=== PATIENT | female | born 1935 | race Caucasian/White ===

== ENCOUNTER → 2016-11-08 | Outpatient (CLI) | payer MEDICARE, OTHER ==
[~2016-11-08] MED LIST: /CIPR75TA OR; /LANS30GR OR; BISO10TA2 OR; CIPRO OR; GLUC850T OR; HYDR25TA6 OR; LISI20TA5 OR; METFPOW4 XX; POTA10CA2 OR; PRAV40TA OR; RANI300T OR
--- NOTE | 2016-11-14 07:48 | SLEEPHOME ---
DATE OF PROCEDURE: 11/08/2016 REFERRING PROVIDER: Elizabeth Underwood NP INTERPRETATION: Diagnostic home sleep testing was performed due to concern for the obstructive sleep apnea syndrome in this patient with a history of excessive somnolence and comorbidities of hypertension and ischemic heart disease. For testing, a NOX-T3 respiratory monitoring device was used. Continuous record was made of pulse, oxygen saturation, air flow, chest and abdominal strain, and body position. 9 hours and 59 minutes of data were reviewed. Of these, 5 hours and 55 minutes were indicated as time in bed. During the interval marked time in bed, there were 203 respiratory events identified of 10 seconds in duration or greater for a respiratory event index of 34.3. The events were primarily obstructive. The patient's baseline pulse rate was 61%. Pulse rate ranged 55 to 75. Baseline saturation 92%, lowest oxygen saturation 74%. Testing was performed in both the supine and nonsupine positions. IMPRESSION: Abnormal home sleep testing with repetitive respiratory events and oxygen desaturations to 74% is consistent with the obstructive sleep apnea syndrome. RECOMMENDATION: The patient should be encouraged to return to the sleep disorder center for formal in laboratory testing with pressure titration given the profound oxygen desaturations and comorbidities.
== END ==
LOC: M SLEEP HO 10:55
PROVIDERS: ATTEND Nurse Practitioner Adult Health
DX: G47.30 Sleep apnea, unspecified (principal)

== ENCOUNTER → 2016-12-17 | Outpatient (CLI) | payer MEDICARE, OTHER ==
[~2016-12-17] MED LIST changes: +ASPI1TAB PO; +BISO5TAB5 PO; +FISH100049 PO; +LISI20TA PO; +PRAV40TA2 PO; +SERT50TA PO; +VITA200016 PO
--- NOTE | 2016-12-17 12:33 | REP ---
Left foot four views: There is a nondisplaced fracture at the base of the fifth digit metatarsal. There is no dislocation. 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 Impression: Nondisplaced fracture at the base of the fifth digit metatarsal. Signed by David Parker MD 12/17/2016 12:24 P
== END ==
LOC: M ADAMS 12:02
PROVIDERS: ATTEND Physician Assistant
DX: M79.672 Pain in left foot (principal)

== ENCOUNTER → 2017-01-22 | Outpatient (CLI) | payer MEDICARE, OTHER ==
--- NOTE | 2017-01-25 10:23 | SLEEPCENT ---
DATE OF PROCEDURE: 01/22/2017 ORDERED BY: Elizabeth Underwood. Nocturnal polysomnography was performed for the titration of pressure therapy in this patient with obstructive sleep apnea syndrome based on clinical diagnosis confirmed by home testing revealing respiratory event index of 34.3. For testing, a [employer] Kira View full face mask of small size was used. 4 cm of water pressure applied to the circuit and the lights were extinguished. 7 hours and 8 minutes of data were reviewed. There were 360 minutes of sleep identified. Sleep latency was prolonged at 34 minutes. REM latency was also prolonged at 182 minutes. Sleep architecture did improve with optimal pressure therapy. There was one rapid eye movement (REM) period appreciated. There were some periods of wake. Overall sleep efficiency was 85.4%. Patient's EKG showed small complexes in a sinus rhythm of 58 beats per minute. EEG showed reasonably normal wave forms for sleep and wake. Respiratory events were best palliated with CPAP at a pressure of +7. Minimal snoring was noted early in the study. There was some persistence of limb activity with at least three trains of 30 events. Limb movement arousal index was mildly elevated at 8.8. IMPRESSION: 1. Obstructive sleep apnea syndrome (G47.33). 2. There is mild periodic limb movement disorder (G47.61). RECOMMENDATION: Nightly use of pressure therapy 7 cm of water should be sufficient to address the patient's respiratory issues. If sleep symptoms persist, interventions to reduce the frequency of arousal from limb activity may be helpful.
== END ==
LOC: M SLEEP 19:35
PROVIDERS: ATTEND Nurse Practitioner Adult Health
DX: G47.33 Obstructive sleep apnea (adult) (pediatric) (principal)

== ENCOUNTER 2018-07-07 10:55 | Emergency (ER) | payer MEDICARE, OTHER ==
[2018-07-07 12:17] LABS: KETONE, URINE AUTO RFX NEGATIVE (NEGATIVE); NITRITE, URINE AUTO RFX NEGATIVE (NEGATIVE); RBC, URINE AUTO RFX 1 /HPF (0-3); SPECIFIC GRAVITY UR AUTO RFX 1.013 (1.002-1.035); SQUAM EPITHELIAL CELL UR AURFX 2 /HPF (0-6); WBC, URINE AUTO RFX 3 /HPF (0-3)
[2018-07-07 12:18] LABS: LEUKOCYTE ESTERASE UR AUTO RFX 2+ (NEGATIVE)
== END 2018-07-07 12:55 | disposition home or self-care (01) ==
LOC: M ED 10:55
DX: N30.90 Cystitis, unspecified without hematuria (principal); L30.9 Dermatitis, unspecified; E11.9 Type 2 diabetes mellitus without complications; I10 Essential (primary) hypertension; J45.909 Unspecified asthma, uncomplicated; G47.33 Obstructive sleep apnea (adult) (pediatric); F41.9 Anxiety disorder, unspecified; Z79.899 Other long term (current) drug therapy; Z79.82 Long term (current) use of aspirin; Z88.0 Allergy status to penicillin; Z88.1 Allergy status to other antibiotic agents; Z88.8 Allergy status to other drugs, medicaments and biological substances; Z91.018 Allergy to other foods
CPT/HCPCS: 81001

== ENCOUNTER → 2018-09-02 | Outpatient (REF) | payer MEDICARE, OTHER ==
[2018-09-02 19:56] LABS: AMYLASE 33 U/L (25-115)
[2018-09-02 19:56] LABS: LIPASE 175 U/L (73-393)
[2018-09-02 20:16] LABS: CONTROL LINE HPYORI INT CTR LINE PRESENT; H PYLORI QUALITATIVE IgG DETECTED (NEGATIVE)
== END ==
LOC: M LAB REF 18:01
DX: R11.0 Nausea (principal)
CPT/HCPCS: 82150

== ENCOUNTER → 2021-09-06 | Outpatient (CLI) | payer MEDICARE, OTHER ==
[~2021-09-06] MED LIST changes: -ASPI1TAB PO; +ASPI81TA26 PO; +BISO5TAB14 PO; -BISO5TAB5 PO; +KENAAER3 TOP; -LISI20TA PO; +LISI20TA35 PO; +MACR100C43 PO; +NIZO2SHA TOP; +RANI1SYP PO; +SERT-141 PO; -SERT50TA PO
--- NOTE | 2021-09-06 16:56 | REP ---
INDICATION: MASS PAIN SWELLING COMPARISON: None. TECHNIQUE: Nye scale and color Doppler evaluation using linear high frequency transducer. FINDINGS: Ultrasound examination of the right lower extremity deep venous structures from the common femoral vein through the popliteal vein demonstrates normal compressibility, flow and wave patterns in response to respiration and augmentation. Evaluation of the calf veins demonstrates normal appearance to the posterior tibial and peroneal veins. There is no evidence for deep venous thrombosis. Contralateral CFV is patent and normal. IMPRESSION: No evidence for deep venous thrombosis. <Electronically signed by Jordan Beaver > 09/06/21 1739
== END ==
LOC: M RAD 15:32
PROVIDERS: ATTEND Physician Assistant Medical
DX: R22.41 Localized swelling, mass and lump, right lower limb (principal)

== ENCOUNTER 2021-12-17 13:28 | Emergency (ER) | payer MEDICARE, OTHER ==
[~2021-12-17] VITALS: Ht 165.1 cm; Wt 91.5 kg
[2021-12-17] MEDS ORDERED: NS 500 ML IV ONE (14:10)
[2021-12-17 14:43] LABS: BASO # 0.1 10^3/uL (0.0-0.2); BASO % 0.7 % (0.0-1.0); EOS # 0.2 10^3/uL (0.0-0.5); EOS % 1.9 % (0.0-3.0); HEMATOCRIT 34.3 % (36.0-47.0); HEMOGLOBIN 10.9 g/dl (12.0-15.5); LYMPH # 2.6 10^3/uL (1.5-5.0); LYMPH % 28.6 % (24.0-44.0); MEAN CORPUSCULAR HEMOGLOBIN 27.5 pg (27.0-33.0); MEAN CORPUSCULAR HGB CONC 31.8 g/dl (32.0-36.5); MEAN CORPUSCULAR VOLUME 86.4 fl (80.0-96.0); MONO # 0.8 10^3/uL (0.0-0.8); MONO % 8.5 % (2.0-8.0); NEUTROPHILS # 5.3 10^3/uL (1.5-8.5); PLATELET COUNT, AUTOMATED 343 10^3/uL (150-450); RED BLOOD COUNT 3.97 10^6/uL (4.00-5.40)
[2021-12-17 15:05] LABS: ALBUMIN 3.6 GM/DL (3.2-5.2); BILIRUBIN,DIRECT 0.3 MG/DL (0.0-0.2); BILIRUBIN,TOTAL 0.7 MG/DL (0.2-1.0); TOTAL PROTEIN 6.3 GM/DL (6.4-8.2)
[2021-12-17] MEDS ORDERED: ISOVUE-370 76% 100ML VIAL As Ordered ONE (15:07)
[2021-12-17] MEDS ORDERED: ONDA4TAB6 PO (17:21)
[2021-12-17 18:00] VITALS: BP 125/58
== END 2021-12-17 19:09 | disposition home or self-care (01) ==
LOC: M ED 13:28
DX: R14.0 Abdominal distension (gaseous) (principal); E11.9 Type 2 diabetes mellitus without complications; I10 Essential (primary) hypertension; E78.5 Hyperlipidemia, unspecified; F33.9 Major depressive disorder, recurrent, unspecified; K21.9 Gastro-esophageal reflux disease without esophagitis; Z79.899 Other long term (current) drug therapy; Z79.82 Long term (current) use of aspirin; Z88.0 Allergy status to penicillin; Z88.1 Allergy status to other antibiotic agents; Z88.2 Allergy status to sulfonamides; Z88.8 Allergy status to other drugs, medicaments and biological substances
CPT/HCPCS: 36415; 74177; 80047; 80076; 83690; 85025; 93041; 99285; Q9967

== ENCOUNTER 2022-01-20 21:19 | Inpatient (IN) | payer MEDICARE, OTHER ==
[~2022-01-20] VITALS: Ht 165.1 cm; Wt 89.7 kg
[~2022-01-20 21:19] MED LIST changes: +AMLO1TAB24 PO; +ATOR1TAB21 PO; +BACITAB PO; +CEPH500C PO; +D-3-50003 PO; +FLUO20CA22 PO; +FURO40TA2 PO; +ISOS1TAB35 PO; +METR-265 PO; +ONDA4TAB6 PO; +PANT40TA29 PO; +PRED20TA PO; +PRED5TA PO; +SUCR1TAB56 PO
[2022-01-20] MEDS ORDERED: ONDANSETRON 4MG/2ML VIAL IV ONE (22:20)
[2022-01-20 22:36] LABS: BASO % 0.2 % (0.0-1.0); EOS % 0.1 % (0.0-3.0); HEMATOCRIT 30.8 % (36.0-47.0); HEMOGLOBIN 10.1 g/dl (12.0-15.5); LYMPH # 1.4 10^3/uL (1.5-5.0); MEAN CORPUSCULAR HEMOGLOBIN 27.2 pg (27.0-33.0); MEAN CORPUSCULAR HGB CONC 32.8 g/dl (32.0-36.5); MONO # 1.1 10^3/uL (0.0-0.8); MONO % 8.9 % (2.0-8.0); NEUTROPHILS # 10.1 10^3/uL (1.5-8.5); NEUTROPHILS % 78.6 % (36.0-66.0); RED BLOOD COUNT 3.71 10^6/uL (4.00-5.40); WHITE BLOOD COUNT 12.9 10^3/uL (4.0-10.0)
[2022-01-20 22:51] LABS: PLATELET COUNT, AUTOMATED 443 10^3/uL (150-450)
[2022-01-20 23:45] LABS: ALBUMIN 3.4 GM/DL (3.2-5.2); BILIRUBIN,TOTAL 0.4 MG/DL (0.2-1.0); CALCIUM LEVEL 9.5 MG/DL (8.8-10.2); CREATININE FOR GFR 2.51 MG/DL (0.55-1.30); GLOMERULAR FILTRATION RATE 19.4 (>32); POTASSIUM SERUM 3.2 MEQ/L (3.5-5.1); TOTAL PROTEIN 6.3 GM/DL (6.4-8.2)
[2022-01-21] MEDS ORDERED: CEPHALEXIN 500 MG CAP PO ONE
[2022-01-21] MEDS ORDERED: metroNIDAZOLE (FLAGYL) 500MG TABLET PO ONE
[2022-01-21] MEDS ORDERED: ATORVASTATIN 20 MG TAB PO ONE
[2022-01-21] MEDS ORDERED: METOCLOPRAMIDE INJ 10MG/2ML VIAL (J2765 PER 1) IV ONE (00:10)
[2022-01-21] MEDS ORDERED: CEPH500C PO (01:41)
[2022-01-21] MEDS ORDERED: METR-265 PO (01:41)
[2022-01-21] MEDS ORDERED: BACITAB PO (01:41)
[2022-01-21] MEDS ORDERED: FURO40TA2 PO (01:41)
[2022-01-21] MEDS ORDERED: AMLO1TAB24 PO (01:41)
[2022-01-21] MEDS ORDERED: HOME MED LIST COMPLETE! XX SCH (01:45)
[2022-01-21] MEDS ORDERED: PROMETHAZINE 25MG/ML 1ML VIAL IV PRN (02:00)
[2022-01-21] MEDS ORDERED: GLUCOSE 4GM CHEW TABLET PO PRN (02:00)
[2022-01-21] MEDS ORDERED: DEXTROSE 50% 50 ML SYRINGE IV PRN (02:00)
[2022-01-21] MEDS ORDERED: metroNIDAZOLE 500 MG in IV 1 EA IV SCH (02:00)
[2022-01-21] MEDS ORDERED: KCL 20MEQ in NS 1000ML 1,000 ML IV SCH (02:00)
[2022-01-21] MEDS ORDERED: GLUCAGON INJ 1MG VIAL SC PRN (02:00)
[2022-01-21] MEDS ORDERED: ONDANSETRON 4MG/2ML VIAL IV PRN (02:00)
[2022-01-21 05:08] LABS: RSV AMPLIFICATION NEGATIVE (NEGATIVE)
[2022-01-21] MEDS: HEPARIN SOD (PORCINE) 5000UNITS/ML 1ML VIAL/SYRINGE SQ SCH ×3 (06:00→21:15)
[2022-01-21] MEDS: CEPHALEXIN 500 MG CAP PO SCH ×3 (06:00→21:15)
[2022-01-21 06:48] LABS: HEMATOCRIT 29.1 % (36.0-47.0); HEMOGLOBIN 9.4 g/dl (12.0-15.5); MEAN CORPUSCULAR HEMOGLOBIN 27.6 pg (27.0-33.0); MEAN CORPUSCULAR HGB CONC 32.3 g/dl (32.0-36.5); MEAN CORPUSCULAR VOLUME 85.6 fl (80.0-96.0); PLATELET COUNT, AUTOMATED 403 10^3/uL (150-450); WHITE BLOOD COUNT 13.2 10^3/uL (4.0-10.0)
[2022-01-21 07:15] LABS: CALCIUM LEVEL 9.2 MG/DL (8.8-10.2); CREATININE FOR GFR 2.36 MG/DL (0.55-1.30); GLOMERULAR FILTRATION RATE 20.8 (>32); MAGNESIUM LEVEL 1.9 MG/DL (1.8-2.4)
[2022-01-21 07:16] LABS: INR 1.22; PROTHROMBIN TIME 15.8 SECONDS (12.7-14.5)
[2022-01-21 07:17] LABS: PARTIAL THROMBOPLASTIN TIME 33.1 SECONDS (25.9-37.0)
[2022-01-21] MEDS: SUCRALFATE 1 GM TAB PO SCH ×4 (07:30→21:15)
[2022-01-21] MEDS ORDERED: METOCLOPRAMIDE INJ 10MG/2ML VIAL (J2765 PER 1) IV PRN (07:35)
[2022-01-21] MEDS: LACTOBACILLUS ACIDOPHILUS CAP (BACID) PO SCH ×3 (09:00→21:14)
[2022-01-21] MEDS ORDERED: FUROSEMIDE 40 MG TAB PO SCH (09:00)
[2022-01-21 09:20] VITALS: BP 154/65
[2022-01-21] MEDS: HumaLOG INSULIN (NovoLOG) PER UNIT SC SCH ×4 (09:59→21:00)
[2022-01-21] MEDS: KCL 10MEQ/100ML SWI (KRUN) 10 MEQ in IV 1 EA IV SCH ×2 (10:00→11:36)
[2022-01-21] MEDS: PANTOPRAZOLE 40MG VIAL IV SCH ×2 (10:06→21:15)
[2022-01-21] MEDS: metroNIDAZOLE 500 MG in IV 1 EA IV SCH ×2 (10:07→17:15)
[2022-01-21] MEDS: amLODIPine 5 MG TAB PO SCH (13:46)
[2022-01-21] MEDS: ASPIRIN 81MG ENTERIC TABLET PO SCH (13:47)
[2022-01-21] MEDS: FLUoxetine 20MG CAP PO SCH (13:47)
[2022-01-21] MEDS: ISOSORBIDE MON. (IMDUR) 30 MG XR TAB PO SCH (13:47)
[2022-01-21] MEDS: predniSONE 5 MG TAB PO SCH ×2 (13:47→21:15)
[2022-01-21] MEDS: POTASSIUM CHLORIDE 10MEQ SR TABLET PO SCH ×2 (13:48→17:14)
[2022-01-21] MEDS: BISOPROLOL FUM 2.5 MG PER 1/2TAB PO SCH (13:50)
[2022-01-21 14:00] VITALS: BP 152/66
[2022-01-21] MEDS ORDERED: KCL 10MEQ/100ML SWI (KRUN) 10 MEQ in IV 1 EA IV ONE (14:00)
[2022-01-21] MEDS: FUROSEMIDE 40MG/4ML VIAL (J1940) IV SCH (17:15)
[2022-01-21] MEDS ORDERED: POTASSIUM CHLORIDE 10MEQ SR TABLET PO SCH (18:00)
[2022-01-21] MEDS: ATORVASTATIN 20 MG TAB PO SCH (21:15)
[2022-01-21 22:00] VITALS: BP 146/65
[2022-01-22] MEDS: metroNIDAZOLE 500 MG in IV 1 EA IV SCH ×3 (00:32→17:02)
[2022-01-22] MEDS: HEPARIN SOD (PORCINE) 5000UNITS/ML 1ML VIAL/SYRINGE SQ SCH ×3 (06:00→20:53)
[2022-01-22] MEDS: CEPHALEXIN 500 MG CAP PO SCH ×2 (06:00→14:04)
[2022-01-22] MEDS: SUCRALFATE 1 GM TAB PO SCH ×4 (06:51→20:50)
[2022-01-22 06:53] LABS: HEMATOCRIT 27.5 % (36.0-47.0); HEMOGLOBIN 8.8 g/dl (12.0-15.5); MEAN CORPUSCULAR HEMOGLOBIN 27.5 pg (27.0-33.0); MEAN CORPUSCULAR VOLUME 85.9 fl (80.0-96.0); PLATELET COUNT, AUTOMATED 352 10^3/uL (150-450); WHITE BLOOD COUNT 6.4 10^3/uL (4.0-10.0)
[2022-01-22 07:17] LABS: CALCIUM LEVEL 9.1 MG/DL (8.8-10.2); CREATININE FOR GFR 2.13 MG/DL (0.55-1.30); GLOMERULAR FILTRATION RATE 23.4 (>32); MAGNESIUM LEVEL 1.7 MG/DL (1.8-2.4)
[2022-01-22] MEDS: PANTOPRAZOLE 40MG VIAL IV SCH (08:13)
[2022-01-22] MEDS: FUROSEMIDE 40MG/4ML VIAL (J1940) IV SCH ×2 (08:14→17:02)
[2022-01-22] MEDS: ISOSORBIDE MON. (IMDUR) 30 MG XR TAB PO SCH (08:14)
[2022-01-22] MEDS: predniSONE 5 MG TAB PO SCH ×2 (08:14→20:50)
[2022-01-22] MEDS: FLUoxetine 20MG CAP PO SCH (08:14)
[2022-01-22] MEDS: amLODIPine 5 MG TAB PO SCH (08:14)
[2022-01-22] MEDS: ASPIRIN 81MG ENTERIC TABLET PO SCH (08:14)
[2022-01-22] MEDS: LACTOBACILLUS ACIDOPHILUS CAP (BACID) PO SCH ×3 (08:14→20:50)
[2022-01-22] MEDS: HumaLOG INSULIN (NovoLOG) PER UNIT SC SCH ×4 (08:15→21:00)
[2022-01-22 14:00] VITALS: BP 153/69
[2022-01-22 18:55] VITALS: BP 138/70
[2022-01-22] MEDS: ACETAMINOPHEN TAB 650MG DOSE (2X325MG) PO PRN (20:50)
[2022-01-22] MEDS: ATORVASTATIN 20 MG TAB PO SCH (20:50)
[2022-01-22] MEDS: PANTOPRAZOLE 40MG TAB (PROTONIX) PO SCH (20:54)
[2022-01-22 22:00] VITALS: BP 123/50
[2022-01-23] MEDS ORDERED: CALCIUM CARBONATE 500 MG CHEW U/D PO PRN (01:05)
[2022-01-23] MEDS: HEPARIN SOD (PORCINE) 5000UNITS/ML 1ML VIAL/SYRINGE SQ SCH ×2 (05:07→13:33)
[2022-01-23 06:00] VITALS: BP 139/59
[2022-01-23 07:30] VITALS: BP 140/62
[2022-01-23 07:33] LABS: HEMATOCRIT 25.4 % (36.0-47.0); HEMOGLOBIN 8.2 g/dl (12.0-15.5); MEAN CORPUSCULAR HEMOGLOBIN 27.2 pg (27.0-33.0); MEAN CORPUSCULAR HGB CONC 32.3 g/dl (32.0-36.5); MEAN CORPUSCULAR VOLUME 84.4 fl (80.0-96.0); PLATELET COUNT, AUTOMATED 334 10^3/uL (150-450); RED BLOOD COUNT 3.01 10^6/uL (4.00-5.40); WHITE BLOOD COUNT 6.8 10^3/uL (4.0-10.0)
[2022-01-23] MEDS: SUCRALFATE 1 GM TAB PO SCH ×4 (07:39→20:57)
[2022-01-23 08:04] LABS: CALCIUM LEVEL 8.5 MG/DL (8.8-10.2); CREATININE FOR GFR 1.91 MG/DL (0.55-1.30); GLOMERULAR FILTRATION RATE 26.5 (>32); MAGNESIUM LEVEL 1.6 MG/DL (1.8-2.4); POTASSIUM SERUM 3.4 MEQ/L (3.5-5.1)
[2022-01-23] MEDS: HumaLOG INSULIN (NovoLOG) PER UNIT SC SCH ×4 (08:32→21:00)
[2022-01-23] MEDS: FUROSEMIDE 40MG/4ML VIAL (J1940) IV SCH ×2 (08:33→16:41)
[2022-01-23] MEDS: predniSONE 5 MG TAB PO SCH ×2 (08:33→20:56)
[2022-01-23] MEDS: ASPIRIN 81MG ENTERIC TABLET PO SCH (08:33)
[2022-01-23] MEDS: amLODIPine 5 MG TAB PO SCH (08:33)
[2022-01-23] MEDS: BISOPROLOL FUM 2.5 MG PER 1/2TAB PO SCH (08:33)
[2022-01-23] MEDS: LACTOBACILLUS ACIDOPHILUS CAP (BACID) PO SCH ×3 (08:33→20:57)
[2022-01-23] MEDS: PANTOPRAZOLE 40MG TAB (PROTONIX) PO SCH (08:34)
[2022-01-23] MEDS: ISOSORBIDE MON. (IMDUR) 30 MG XR TAB PO SCH (08:34)
[2022-01-23] MEDS: FLUoxetine 20MG CAP PO SCH (08:34)
[2022-01-23] MEDS ORDERED: MAG SULF 1GM/100ML (MAG RUN) 1 GM in IV 1 EA IV ONE (10:00)
[2022-01-23] MEDS: FERROUS SULFATE 325MG TAB PO SCH ×2 (10:39→20:57)
[2022-01-23 14:00] VITALS: BP 136/58
[2022-01-23] MEDS ORDERED: CIPROFLOXACIN 400 MG in IV 1 EA IV SCH (18:00)
[2022-01-23] MEDS: metroNIDAZOLE 500 MG in IV 1 EA IV SCH (19:44)
[2022-01-23] MEDS: ACETAMINOPHEN TAB 650MG DOSE (2X325MG) PO PRN (20:56)
[2022-01-23] MEDS: PANTOPRAZOLE 40MG VIAL IV SCH (20:57)
[2022-01-23] MEDS: cefTRIAXone SOD 2 GM in D5W MINI-BAG PLUS 50 ML IV SCH (20:57)
[2022-01-23] MEDS: ATORVASTATIN 20 MG TAB PO SCH (20:57)
[2022-01-23 21:35] LABS: HEMATOCRIT 27.7 % (36.0-47.0); HEMOGLOBIN 8.9 g/dl (12.0-15.5); MEAN CORPUSCULAR HEMOGLOBIN 27.2 pg (27.0-33.0); MEAN CORPUSCULAR HGB CONC 32.1 g/dl (32.0-36.5); MEAN CORPUSCULAR VOLUME 84.7 fl (80.0-96.0); PLATELET COUNT, AUTOMATED 402 10^3/uL (150-450); RED BLOOD COUNT 3.27 10^6/uL (4.00-5.40); WHITE BLOOD COUNT 9.8 10^3/uL (4.0-10.0)
[2022-01-23 22:00] VITALS: BP 141/61
[2022-01-24] MEDS: metroNIDAZOLE 500 MG in IV 1 EA IV SCH ×3 (04:32→21:00)
[2022-01-24] MEDS: PANTOPRAZOLE 40MG VIAL IV SCH ×2 (07:59→21:01)
[2022-01-24] MEDS: amLODIPine 5 MG TAB PO SCH (08:00)
[2022-01-24] MEDS: ISOSORBIDE MON. (IMDUR) 30 MG XR TAB PO SCH (08:00)
[2022-01-24] MEDS: FERROUS SULFATE 325MG TAB PO SCH ×2 (08:00→21:01)
[2022-01-24] MEDS: LACTOBACILLUS ACIDOPHILUS CAP (BACID) PO SCH ×3 (08:00→21:00)
[2022-01-24] MEDS: SUCRALFATE 1 GM TAB PO SCH ×4 (08:00→21:00)
[2022-01-24] MEDS: predniSONE 5 MG TAB PO SCH (08:00)
[2022-01-24] MEDS: FLUoxetine 20MG CAP PO SCH (08:00)
[2022-01-24] MEDS: HumaLOG INSULIN (NovoLOG) PER UNIT SC SCH ×4 (08:01→21:00)
[2022-01-24 08:10] LABS: HEMATOCRIT 25.6 % (36.0-47.0); HEMOGLOBIN 8.2 g/dl (12.0-15.5); MEAN CORPUSCULAR HEMOGLOBIN 27.2 pg (27.0-33.0); MEAN CORPUSCULAR VOLUME 84.8 fl (80.0-96.0); PLATELET COUNT, AUTOMATED 348 10^3/uL (150-450); RED BLOOD COUNT 3.02 10^6/uL (4.00-5.40)
[2022-01-24 08:31] LABS: CALCIUM LEVEL 8.9 MG/DL (8.8-10.2); CREATININE FOR GFR 1.5 MG/DL (0.55-1.30); GLOMERULAR FILTRATION RATE 35.1 (>32); MAGNESIUM LEVEL 1.6 MG/DL (1.8-2.4); POTASSIUM SERUM 3.2 MEQ/L (3.5-5.1)
[2022-01-24] MEDS ORDERED: ANUSOL HC 25MG SUPP PR ONE (12:00)
[2022-01-24] MEDS ORDERED: MAG SULF 1GM/100ML (MAG RUN) 1 GM in IV 1 EA IV ONE (13:15)
[2022-01-24] MEDS ORDERED: POTASSIUM CHLORIDE 10MEQ SR TABLET PO ONE (13:20)
[2022-01-24] MEDS: MAGNESIUM OXIDE 400MG TAB (MAG-OX) PO SCH ×2 (13:49→21:00)
[2022-01-24 14:00] VITALS: BP 146/50
[2022-01-24 20:27] VITALS: BP 145/51
[2022-01-24] MEDS: ATORVASTATIN 20 MG TAB PO SCH (21:00)
[2022-01-24] MEDS: predniSONE 10 MG TAB PO SCH (21:01)
[2022-01-24] MEDS: ANUSOL HC 25MG SUPP PR SCH (21:02)
[2022-01-24] MEDS: cefTRIAXone SOD 2 GM in D5W MINI-BAG PLUS 50 ML IV SCH (22:22)
[2022-01-25] MEDS: metroNIDAZOLE 500 MG in IV 1 EA IV SCH ×3 (04:04→20:24)
[2022-01-25 06:25] VITALS: BP 144/53
[2022-01-25 06:38] LABS: HEMATOCRIT 24.9 % (36.0-47.0); HEMOGLOBIN 7.9 g/dl (12.0-15.5); MEAN CORPUSCULAR HEMOGLOBIN 27.1 pg (27.0-33.0); MEAN CORPUSCULAR HGB CONC 31.7 g/dl (32.0-36.5); MEAN CORPUSCULAR VOLUME 85.3 fl (80.0-96.0); PLATELET COUNT, AUTOMATED 344 10^3/uL (150-450); RED BLOOD COUNT 2.92 10^6/uL (4.00-5.40); WHITE BLOOD COUNT 7.2 10^3/uL (4.0-10.0)
[2022-01-25] MEDS: ANUSOL HC 25MG SUPP PR SCH ×3 (06:38→22:00)
[2022-01-25 07:02] LABS: CREATININE FOR GFR 1.21 MG/DL (0.55-1.30); GLOMERULAR FILTRATION RATE 44.9 (>32); MAGNESIUM LEVEL 1.9 MG/DL (1.8-2.4); POTASSIUM SERUM 3.1 MEQ/L (3.5-5.1)
[2022-01-25] MEDS: SUCRALFATE 1 GM TAB PO SCH ×4 (07:30→20:24)
[2022-01-25] MEDS: HumaLOG INSULIN (NovoLOG) PER UNIT SC SCH ×4 (07:30→21:00)
[2022-01-25] MEDS ORDERED: POTASSIUM CHLORIDE 10MEQ SR TABLET PO ONE (07:45)
[2022-01-25] MEDS: PANTOPRAZOLE 40MG VIAL IV SCH ×2 (08:57→20:24)
[2022-01-25] MEDS ORDERED: LEVEMIR (INSULIN DETEMIR) 1 UNITS/0.01ML SC SCH (09:00)
[2022-01-25] MEDS: BISOPROLOL FUM 2.5 MG PER 1/2TAB PO SCH (09:01)
[2022-01-25] MEDS: LACTOBACILLUS ACIDOPHILUS CAP (BACID) PO SCH ×3 (09:02→20:24)
[2022-01-25] MEDS: FERROUS SULFATE 325MG TAB PO SCH ×2 (09:02→20:24)
[2022-01-25] MEDS: MAGNESIUM OXIDE 400MG TAB (MAG-OX) PO SCH ×2 (09:02→20:25)
[2022-01-25] MEDS: amLODIPine 5 MG TAB PO SCH (09:03)
[2022-01-25] MEDS: FLUoxetine 20MG CAP PO SCH (09:03)
[2022-01-25] MEDS: ISOSORBIDE MON. (IMDUR) 30 MG XR TAB PO SCH (09:03)
[2022-01-25] MEDS: POTASSIUM CHLORIDE 10MEQ SR TABLET PO SCH (10:31)
[2022-01-25] MEDS: predniSONE 10 MG TAB PO SCH ×2 (10:31→20:24)
[2022-01-25 14:00] VITALS: BP 139/57
[2022-01-25] MEDS: OCTREOTIDE ACETATE 100MCG/ML VIAL **IV ADMINISTRATION ONLY IV SCH ×2 (14:13→22:53)
[2022-01-25 19:48] VITALS: BP 142/59
[2022-01-25] MEDS: ATORVASTATIN 20 MG TAB PO SCH (20:24)
[2022-01-25] MEDS: cefTRIAXone SOD 2 GM in D5W MINI-BAG PLUS 50 ML IV SCH (21:56)
[2022-01-26] MEDS: metroNIDAZOLE 500 MG in IV 1 EA IV SCH ×3 (04:05→20:57)
[2022-01-26] MEDS: ANUSOL HC 25MG SUPP PR SCH ×3 (05:26→21:46)
[2022-01-26] MEDS: OCTREOTIDE ACETATE 100MCG/ML VIAL **IV ADMINISTRATION ONLY IV SCH ×3 (05:27→21:45)
[2022-01-26 06:02] VITALS: BP 135/60
[2022-01-26 07:08] LABS: HEMATOCRIT 24.9 % (36.0-47.0); HEMOGLOBIN 7.9 g/dl (12.0-15.5); MEAN CORPUSCULAR HEMOGLOBIN 27.7 pg (27.0-33.0); MEAN CORPUSCULAR HGB CONC 31.7 g/dl (32.0-36.5); MEAN CORPUSCULAR VOLUME 87.4 fl (80.0-96.0); PLATELET COUNT, AUTOMATED 344 10^3/uL (150-450); RED BLOOD COUNT 2.85 10^6/uL (4.00-5.40); WHITE BLOOD COUNT 7.8 10^3/uL (4.0-10.0)
[2022-01-26 07:32] LABS: CREATININE FOR GFR 1.12 MG/DL (0.55-1.30); GLOMERULAR FILTRATION RATE 49.1 (>32); POTASSIUM SERUM 4.3 MEQ/L (3.5-5.1)
[2022-01-26] MEDS: SUCRALFATE 1 GM TAB PO SCH ×4 (07:52→20:57)
[2022-01-26] MEDS: HumaLOG INSULIN (NovoLOG) PER UNIT SC SCH ×4 (07:52→20:58)
[2022-01-26] MEDS ORDERED: LEVEMIR (INSULIN DETEMIR) 1 UNITS/0.01ML SC SCH ×2 (09:00)
[2022-01-26] MEDS: PANTOPRAZOLE 40MG VIAL IV SCH ×2 (09:55→20:57)
[2022-01-26] MEDS: LACTOBACILLUS ACIDOPHILUS CAP (BACID) PO SCH ×3 (09:59→20:57)
[2022-01-26] MEDS: FERROUS SULFATE 325MG TAB PO SCH ×2 (10:00→20:57)
[2022-01-26] MEDS: MAGNESIUM OXIDE 400MG TAB (MAG-OX) PO SCH ×2 (10:01→20:57)
[2022-01-26] MEDS: FLUoxetine 20MG CAP PO SCH (10:01)
[2022-01-26] MEDS: predniSONE 10 MG TAB PO SCH ×2 (10:02→20:57)
[2022-01-26] MEDS: ISOSORBIDE MON. (IMDUR) 30 MG XR TAB PO SCH (10:02)
[2022-01-26] MEDS: POTASSIUM CHLORIDE 10MEQ SR TABLET PO SCH (10:03)
[2022-01-26] MEDS: amLODIPine 5 MG TAB PO SCH (10:03)
[2022-01-26 15:15] VITALS: BP 153/68
[2022-01-26 20:31] VITALS: BP 160/70
[2022-01-26] MEDS: ATORVASTATIN 20 MG TAB PO SCH (20:57)
[2022-01-26] MEDS: ACETAMINOPHEN TAB 650MG DOSE (2X325MG) PO PRN (21:46)
[2022-01-26] MEDS: cefTRIAXone SOD 2 GM in D5W MINI-BAG PLUS 50 ML IV SCH (22:30)
[2022-01-27] VITALS (8 sets, daily range): BP systolic 143–152; BP diastolic 63–70
[2022-01-27] MEDS: metroNIDAZOLE 500 MG in IV 1 EA IV SCH ×3 (03:54→20:38)
[2022-01-27] MEDS: OCTREOTIDE ACETATE 100MCG/ML VIAL **IV ADMINISTRATION ONLY IV SCH ×3 (05:08→21:49)
[2022-01-27] MEDS: ANUSOL HC 25MG SUPP PR SCH ×3 (05:08→21:49)
[2022-01-27 06:27] LABS: HEMATOCRIT 24.5 % (36.0-47.0); HEMOGLOBIN 7.6 g/dl (12.0-15.5); MEAN CORPUSCULAR VOLUME 86.9 fl (80.0-96.0); PLATELET COUNT, AUTOMATED 346 10^3/uL (150-450); RED BLOOD COUNT 2.82 10^6/uL (4.00-5.40); WHITE BLOOD COUNT 8.9 10^3/uL (4.0-10.0)
[2022-01-27 06:52] LABS: CALCIUM LEVEL 8.8 MG/DL (8.8-10.2); MAGNESIUM LEVEL 1.9 MG/DL (1.8-2.4)
[2022-01-27] MEDS: HumaLOG INSULIN (NovoLOG) PER UNIT SC SCH ×4 (07:30→21:00)
[2022-01-27] MEDS ORDERED: MAGNESIUM CITRATE 300 ML BTL PO ONE (07:55)
[2022-01-27] MEDS: PANTOPRAZOLE 40MG VIAL IV SCH ×2 (08:40→20:38)
[2022-01-27] MEDS: FERROUS SULFATE 325MG TAB PO SCH ×2 (08:42→20:38)
[2022-01-27] MEDS: predniSONE 10 MG TAB PO SCH (08:42)
[2022-01-27] MEDS: MAGNESIUM OXIDE 400MG TAB (MAG-OX) PO SCH ×2 (08:42→20:38)
[2022-01-27] MEDS: POTASSIUM CHLORIDE 10MEQ SR TABLET PO SCH (08:42)
[2022-01-27] MEDS: LACTOBACILLUS ACIDOPHILUS CAP (BACID) PO SCH ×3 (08:42→20:38)
[2022-01-27] MEDS: amLODIPine 5 MG TAB PO SCH (08:43)
[2022-01-27] MEDS: SUCRALFATE 1 GM TAB PO SCH ×4 (08:43→20:38)
[2022-01-27] MEDS: LEVEMIR (INSULIN DETEMIR) 1 UNITS/0.01ML SC SCH (09:00)
[2022-01-27] MEDS ORDERED: GOLYTELY SOLN 4000 ML BTL PO ONE (10:00)
[2022-01-27] MEDS: ISOSORBIDE MON. (IMDUR) 30 MG XR TAB PO SCH (10:28)
[2022-01-27] MEDS: FLUoxetine 20MG CAP PO SCH (10:29)
[2022-01-27] MEDS: BISOPROLOL FUM 2.5 MG PER 1/2TAB PO SCH (10:29)
[2022-01-27] MEDS ORDERED: fentaNYL 100 MCG/2 ML INJECTION As Ordered ONE (17:22)
[2022-01-27] MEDS ORDERED: LIDOCAINE 2% 100MG/5ML SDV (FOR ANES.) As Ordered ONE (17:22)
[2022-01-27] MEDS ORDERED: propofoL 200 MG/20 ML VIAL As Ordered ONE (17:22)
[2022-01-27] MEDS ORDERED: LR 1,000 ML IV SCH (18:00)
[2022-01-27] MEDS ORDERED: ONDANSETRON 4MG/2ML VIAL IV PRN (18:00)
[2022-01-27 18:43] LABS: HEMATOCRIT 29.6 % (36.0-47.0); HEMOGLOBIN 9.4 g/dl (12.0-15.5); MEAN CORPUSCULAR HEMOGLOBIN 27.3 pg (27.0-33.0); MEAN CORPUSCULAR HGB CONC 31.8 g/dl (32.0-36.5); PLATELET COUNT, AUTOMATED 357 10^3/uL (150-450); RED BLOOD COUNT 3.44 10^6/uL (4.00-5.40); WHITE BLOOD COUNT 12.6 10^3/uL (4.0-10.0)
[2022-01-27] MEDS: ATORVASTATIN 20 MG TAB PO SCH (20:38)
[2022-01-27] MEDS: cefTRIAXone SOD 2 GM in D5W MINI-BAG PLUS 50 ML IV SCH (21:49)
[2022-01-28] MEDS: metroNIDAZOLE 500 MG in IV 1 EA IV SCH ×3 (04:25→21:00)
[2022-01-28] MEDS: ANUSOL HC 25MG SUPP PR SCH ×3 (05:29→21:17)
[2022-01-28] MEDS: OCTREOTIDE ACETATE 100MCG/ML VIAL **IV ADMINISTRATION ONLY IV SCH ×3 (05:30→21:16)
[2022-01-28 06:00] VITALS: BP 147/66
[2022-01-28] MEDS: PANTOPRAZOLE 40MG VIAL IV SCH ×2 (08:21→21:16)
[2022-01-28] MEDS: LEVEMIR (INSULIN DETEMIR) 1 UNITS/0.01ML SC SCH (08:21)
[2022-01-28] MEDS: HumaLOG INSULIN (NovoLOG) PER UNIT SC SCH ×4 (08:21→21:00)
[2022-01-28] MEDS: FLUoxetine 20MG CAP PO SCH (08:23)
[2022-01-28] MEDS: ISOSORBIDE MON. (IMDUR) 30 MG XR TAB PO SCH (08:23)
[2022-01-28] MEDS: amLODIPine 5 MG TAB PO SCH (08:24)
[2022-01-28] MEDS: LACTOBACILLUS ACIDOPHILUS CAP (BACID) PO SCH ×3 (08:24→21:17)
[2022-01-28] MEDS: FERROUS SULFATE 325MG TAB PO SCH ×2 (08:24→21:17)
[2022-01-28] MEDS: predniSONE 5 MG TAB PO SCH ×2 (08:24→21:17)
[2022-01-28] MEDS: MAGNESIUM OXIDE 400MG TAB (MAG-OX) PO SCH ×2 (08:24→21:17)
[2022-01-28] MEDS: SUCRALFATE 1 GM TAB PO SCH ×4 (08:24→21:17)
[2022-01-28] MEDS: POTASSIUM CHLORIDE 10MEQ SR TABLET PO SCH (09:00)
[2022-01-28 09:49] LABS: HEMATOCRIT 30.1 % (36.0-47.0); HEMOGLOBIN 9.4 g/dl (12.0-15.5); MEAN CORPUSCULAR HEMOGLOBIN 27.4 pg (27.0-33.0); MEAN CORPUSCULAR HGB CONC 31.2 g/dl (32.0-36.5); MEAN CORPUSCULAR VOLUME 87.8 fl (80.0-96.0); PLATELET COUNT, AUTOMATED 332 10^3/uL (150-450); RED BLOOD COUNT 3.43 10^6/uL (4.00-5.40); WHITE BLOOD COUNT 11.2 10^3/uL (4.0-10.0)
[2022-01-28 10:18] LABS: ALBUMIN 2.7 GM/DL (3.2-5.2); BILIRUBIN,TOTAL 0.4 MG/DL (0.2-1.0); CALCIUM LEVEL 8.7 MG/DL (8.8-10.2); CREATININE FOR GFR 1.09 MG/DL (0.55-1.30); GLOMERULAR FILTRATION RATE 50.7 (>32); POTASSIUM SERUM 3.7 MEQ/L (3.5-5.1); TOTAL PROTEIN 5.3 GM/DL (6.4-8.2)
[2022-01-28 14:00] VITALS: BP 127/64
[2022-01-28] MEDS: IRON SUCROSE 250 MG in NS 237.5 ML IV SCH (17:21)
[2022-01-28] MEDS: ACETAMINOPHEN TAB 650MG DOSE (2X325MG) PO PRN (21:16)
[2022-01-28] MEDS: ATORVASTATIN 20 MG TAB PO SCH (21:17)
[2022-01-28 22:00] VITALS: BP 145/74
[2022-01-28] MEDS: cefTRIAXone SOD 2 GM in D5W MINI-BAG PLUS 50 ML IV SCH (22:23)
[2022-01-29] VITALS (10 sets, daily range): BP systolic 116–159; BP diastolic 63–77
[2022-01-29] MEDS: metroNIDAZOLE 500 MG in IV 1 EA IV SCH ×2 (03:18→12:00)
[2022-01-29] MEDS: OCTREOTIDE ACETATE 100MCG/ML VIAL **IV ADMINISTRATION ONLY IV SCH ×2 (05:44→14:00)
[2022-01-29] MEDS: ANUSOL HC 25MG SUPP PR SCH ×2 (05:44→14:00)
[2022-01-29 06:23] LABS: HEMATOCRIT 27.8 % (36.0-47.0); HEMOGLOBIN 8.6 g/dl (12.0-15.5); MEAN CORPUSCULAR HEMOGLOBIN 27.1 pg (27.0-33.0); MEAN CORPUSCULAR HGB CONC 30.9 g/dl (32.0-36.5); MEAN CORPUSCULAR VOLUME 87.7 fl (80.0-96.0); PLATELET COUNT, AUTOMATED 299 10^3/uL (150-450); RED BLOOD COUNT 3.17 10^6/uL (4.00-5.40)
[2022-01-29 06:51] LABS: ALBUMIN 2.6 GM/DL (3.2-5.2); BILIRUBIN,TOTAL 0.4 MG/DL (0.2-1.0); CALCIUM LEVEL 8.8 MG/DL (8.8-10.2); CREATININE FOR GFR 0.99 MG/DL (0.55-1.30); GLOMERULAR FILTRATION RATE 56.6 (>32); POTASSIUM SERUM 4.6 MEQ/L (3.5-5.1); TOTAL PROTEIN 4.8 GM/DL (6.4-8.2)
[2022-01-29] MEDS ORDERED: PANT40TA29 PO (07:44)
[2022-01-29] MEDS ORDERED: FERR1TAB8 PO (07:44)
[2022-01-29] MEDS ORDERED: PRED5TA PO (07:47)
[2022-01-29] MEDS: PANTOPRAZOLE 40MG VIAL IV SCH (08:36)
[2022-01-29] MEDS: LEVEMIR (INSULIN DETEMIR) 1 UNITS/0.01ML SC SCH (08:37)
[2022-01-29] MEDS: HumaLOG INSULIN (NovoLOG) PER UNIT SC SCH ×2 (08:37→12:19)
[2022-01-29] MEDS: LACTOBACILLUS ACIDOPHILUS CAP (BACID) PO SCH ×2 (08:38→17:36)
[2022-01-29] MEDS: FERROUS SULFATE 325MG TAB PO SCH (08:38)
[2022-01-29] MEDS: predniSONE 5 MG TAB PO SCH (08:38)
[2022-01-29] MEDS: MAGNESIUM OXIDE 400MG TAB (MAG-OX) PO SCH (08:38)
[2022-01-29] MEDS: SUCRALFATE 1 GM TAB PO SCH ×3 (08:38→17:36)
[2022-01-29] MEDS: FLUoxetine 20MG CAP PO SCH (08:38)
[2022-01-29] MEDS: ISOSORBIDE MON. (IMDUR) 30 MG XR TAB PO SCH (08:39)
[2022-01-29] MEDS: BISOPROLOL FUM 2.5 MG PER 1/2TAB PO SCH (08:40)
[2022-01-29] MEDS: amLODIPine 5 MG TAB PO SCH (08:40)
[2022-01-29 08:55] LABS: HEMOGLOBIN A1c 6.8 %
[2022-01-29] MEDS ORDERED: METF500T13 PO (15:35)
[2022-01-29] MEDS ORDERED: ONDA4TAB6 PO (15:36)
[2022-01-29] MEDS: IRON SUCROSE 250 MG in NS 237.5 ML IV SCH (16:00)
[2022-01-31] MEDS ORDERED: NEOM500T PO (13:23)
[2022-01-31] MEDS ORDERED: FLAG375C PO (13:23)
== END 2022-01-29 19:15 | disposition home or self-care (01) | DRG 394 ==
LOC: M ED 21:19 → M ED INP 21:20 → ENRESERV 01-21 08:10 → M MS5PR 01-21 09:05 → OBSVTOIN 01-24 16:55
PROVIDERS: ADMIT Family Medicine; ATTEND Internal Medicine
PROC: 0DJ08ZZ Inspection of Upper Intestinal Tract, Via Natural or Artificial Opening Endoscopic (ICD-10-PCS; principal; 2022-01-28)
PROC: 0DBE8ZX Excision of Large Intestine, Via Natural or Artificial Opening Endoscopic, Diagnostic (ICD-10-PCS; 2022-01-28)
DX: K63.89 Other specified diseases of intestine (principal); N17.9 Acute kidney failure, unspecified; I50.32 Chronic diastolic (congestive) heart failure; K92.2 Gastrointestinal hemorrhage, unspecified; J90 Pleural effusion, not elsewhere classified; K56.600 Partial intestinal obstruction, unspecified as to cause; I25.10 Atherosclerotic heart disease of native coronary artery without angina pectoris; E11.9 Type 2 diabetes mellitus without complications; I11.0 Hypertensive heart disease with heart failure; F32.A Depression, unspecified; F41.9 Anxiety disorder, unspecified; Z87.891 Personal history of nicotine dependence; E87.6 Hypokalemia; E78.5 Hyperlipidemia, unspecified; Z79.82 Long term (current) use of aspirin; Z79.899 Other long term (current) drug therapy; Z88.0 Allergy status to penicillin; Z88.1 Allergy status to other antibiotic agents; Z88.2 Allergy status to sulfonamides; Z88.8 Allergy status to other drugs, medicaments and biological substances; E83.42 Hypomagnesemia; D50.9 Iron deficiency anemia, unspecified; T36.8X5A Adverse effect of other systemic antibiotics, initial encounter; R11.2 Nausea with vomiting, unspecified; Z90.49 Acquired absence of other specified parts of digestive tract; K52.9 Noninfective gastroenteritis and colitis, unspecified; K64.8 Other hemorrhoids

== ENCOUNTER → 2022-02-01 | Outpatient (CLI) | payer MEDICARE, OTHER ==
[~2022-02-01] MED LIST changes: +FERR1TAB8 PO; +FLAG375C PO; +METF500T13 PO; +NEOM500T PO
== END ==
LOC: M LABSMTC 09:14
PROVIDERS: ATTEND Anesthesiology
DX: Z01.812 Encounter for preprocedural laboratory examination (principal); Z20.822 Contact with and (suspected) exposure to COVID-19

== ENCOUNTER 2022-02-06 06:10 | Inpatient (IN) | payer MEDICARE, OTHER ==
[2022-02-06] VITALS (7 sets, daily range): BP systolic 125–145; BP diastolic 53–55
[~2022-02-06] VITALS: Ht 162.6 cm; Wt 82.9 kg
[~2022-02-06 06:10] MED LIST changes: +LIDOCAINE 1% MDV 20ML VIAL SQ PRN
[2022-02-06] MEDS ORDERED: METR-265 PO (06:41)
[2022-02-06] MEDS ORDERED: BUPIVACAINE/EPIN 0.25% 30 ML VIAL As Ordered ONE (07:12)
[2022-02-06] MEDS ORDERED: dexameTHASONE 4 MG/ML 1ML VIAL (J1100 PER 1MG) As Ordered ONE (07:19)
[2022-02-06] MEDS ORDERED: METOCLOPRAMIDE INJ 10MG/2ML VIAL (J2765 PER 1) As Ordered ONE (07:19)
[2022-02-06] MEDS ORDERED: LIDOCAINE 2% 100MG/5ML SDV (FOR ANES.) As Ordered ONE (07:19)
[2022-02-06] MEDS ORDERED: ROCURONIUM BROMIDE 50 MG/5 ML VIAL As Ordered ONE ×2 (07:19→10:44)
[2022-02-06] MEDS ORDERED: propofoL 200 MG/20 ML VIAL As Ordered ONE ×2 (07:19→07:24)
[2022-02-06] MEDS ORDERED: ONDANSETRON 4MG/2ML VIAL As Ordered ONE (07:19)
[2022-02-06] MEDS ORDERED: fentaNYL 250 MCG/5 ML INJECTION As Ordered ONE (07:20)
[2022-02-06] MEDS ORDERED: LR 1,000 ML IV ONE (07:25)
[2022-02-06] MEDS ORDERED: ERTAPENEM 1GM VIAL(INVanz) (J1335 PER 500MG) As Ordered ONE (07:33)
[2022-02-06] MEDS ORDERED: ERTAPENEM SODIUM 1 GM in NS MINI-BAG PLUS 50 ML IV ONE (07:55)
[2022-02-06] MEDS ORDERED: ACETAMINOPHEN 1000MG 100ML IV BTL (OFIRMEV) (J0131 PER 10MG) As Ordered ONE (10:45)
[2022-02-06] MEDS ORDERED: LABETALOL 100MG/20ML VIAL As Ordered ONE (10:45)
[2022-02-06] MEDS ORDERED: SUGAMMADEX SODIUM 500 MG/5 ML VIAL (BRIDION) As Ordered ONE (10:49)
[2022-02-06] MEDS ORDERED: oxyCODONE 5MG TAB PO PRN (11:45)
[2022-02-06] MEDS ORDERED: LR 1,000 ML IV SCH (11:45)
[2022-02-06] MEDS ORDERED: ONDANSETRON 4MG/2ML VIAL IV PRN (11:45)
[2022-02-06] MEDS ORDERED: fentaNYL 100 MCG/2 ML INJECTION IV PRN (11:45)
[2022-02-06] MEDS ORDERED: ACETAMINOPHEN TAB 650MG DOSE (2X325MG) PO PRN (11:50)
[2022-02-06] MEDS ORDERED: NORCO, ANEXSIA 5/325MG TABLET (HYDROcodone/ACETAMINOPHEN) PO PRN (11:50)
[2022-02-06] MEDS ORDERED: MORPHINE 4 MG/ML 1ML VIAL/SYRINGE IV PRN (11:50)
[2022-02-06] MEDS: NS 1,000 ML IV SCH ×2 (13:01→21:20)
[2022-02-06] MEDS: SENOKOT S TAB PO SCH (21:11)
[2022-02-07] VITALS (7 sets, daily range): BP systolic 125–167; BP diastolic 55–66
[2022-02-07] MEDS: NS 1,000 ML IV SCH ×4 (05:30→18:57)
[2022-02-07 06:22] LABS: HEMATOCRIT 29.5 % (36.0-47.0); HEMOGLOBIN 9.5 g/dl (12.0-15.5); MEAN CORPUSCULAR HEMOGLOBIN 28.4 pg (27.0-33.0); MEAN CORPUSCULAR HGB CONC 32.2 g/dl (32.0-36.5); MEAN CORPUSCULAR VOLUME 88.3 fl (80.0-96.0); PLATELET COUNT, AUTOMATED 190 10^3/uL (150-450); RED BLOOD COUNT 3.34 10^6/uL (4.00-5.40); WHITE BLOOD COUNT 9.2 10^3/uL (4.0-10.0)
[2022-02-07 06:48] LABS: BLOOD UREA NITROGEN 16 MG/DL (7-18); CALCIUM LEVEL 8.2 MG/DL (8.8-10.2); CARBON DIOXIDE LEVEL 31 MEQ/L (21-32); CHLORIDE LEVEL 104 MEQ/L (98-107); CREATININE FOR GFR 0.89 MG/DL (0.55-1.30); GLOMERULAR FILTRATION RATE > 60.0 (>32); GLUCOSE, FASTING 197 MG/DL (70-100); SODIUM LEVEL 142 MEQ/L (136-145)
[2022-02-07] MEDS: SENOKOT S TAB PO SCH ×2 (09:14→19:57)
[2022-02-07] MEDS: ENOXAPARIN 30MG/0.3ML SYRINGE (J1650 PER 10MG) SC SCH (09:15)
[2022-02-07] MEDS: ERTAPENEM SODIUM 1 GM in NS MINI-BAG PLUS 50 ML IV SCH (09:15)
[2022-02-07] MEDS ORDERED: NS 500 ML IV ONE (13:05)
[2022-02-07] MEDS ORDERED: POTASSIUM CHLORIDE 10MEQ SR TABLET PO ONE (13:20)
[2022-02-07] MEDS: ATORVASTATIN 20 MG TAB PO SCH (19:57)
[2022-02-08 02:00] VITALS: BP 127/63
[2022-02-08 06:00] VITALS: BP 129/62
[2022-02-08 07:14] LABS: HEMATOCRIT 28.1 % (36.0-47.0); HEMOGLOBIN 8.8 g/dl (12.0-15.5); MEAN CORPUSCULAR HEMOGLOBIN 28.7 pg (27.0-33.0); MEAN CORPUSCULAR HGB CONC 31.3 g/dl (32.0-36.5); MEAN CORPUSCULAR VOLUME 91.5 fl (80.0-96.0); PLATELET COUNT, AUTOMATED 197 10^3/uL (150-450); RED BLOOD COUNT 3.07 10^6/uL (4.00-5.40); WHITE BLOOD COUNT 7.3 10^3/uL (4.0-10.0)
[2022-02-08 07:39] LABS: BLOOD UREA NITROGEN 10 MG/DL (7-18); CALCIUM LEVEL 8.3 MG/DL (8.8-10.2); CARBON DIOXIDE LEVEL 30 MEQ/L (21-32); CHLORIDE LEVEL 109 MEQ/L (98-107); CREATININE FOR GFR 0.71 MG/DL (0.55-1.30); GLOMERULAR FILTRATION RATE > 60.0 (>32); GLUCOSE, FASTING 124 MG/DL (70-100); POTASSIUM SERUM 3.6 MEQ/L (3.5-5.1); SODIUM LEVEL 144 MEQ/L (136-145)
[2022-02-08] MEDS: ERTAPENEM SODIUM 1 GM in NS MINI-BAG PLUS 50 ML IV SCH (09:00)
[2022-02-08] MEDS: ENOXAPARIN 30MG/0.3ML SYRINGE (J1650 PER 10MG) SC SCH (09:00)
[2022-02-08] MEDS: SENOKOT S TAB PO SCH ×2 (09:00→19:59)
[2022-02-08 10:00] VITALS: BP 144/64
[2022-02-08] MEDS: PANTOPRAZOLE 40MG TAB (PROTONIX) PO SCH ×2 (12:04→19:59)
[2022-02-08] MEDS: FUROSEMIDE 40 MG TAB PO SCH (12:04)
[2022-02-08] MEDS: FLUoxetine 20MG CAP PO SCH (12:04)
[2022-02-08 14:00] VITALS: BP 155/65
[2022-02-08] MEDS: ONDANSETRON 4MG/2ML VIAL IV PRN (14:55)
[2022-02-08] MEDS: BISOPROLOL FUM 2.5 MG PER 1/2TAB PO SCH (17:06)
[2022-02-08] MEDS: ATORVASTATIN 20 MG TAB PO SCH (19:59)
[2022-02-08 22:00] VITALS: BP 155/69
[2022-02-09 02:00] VITALS: BP 147/63
[2022-02-09 06:34] LABS: HEMATOCRIT 30.2 % (36.0-47.0); HEMOGLOBIN 9.7 g/dl (12.0-15.5); MEAN CORPUSCULAR HEMOGLOBIN 28.5 pg (27.0-33.0); MEAN CORPUSCULAR HGB CONC 32.1 g/dl (32.0-36.5); MEAN CORPUSCULAR VOLUME 88.8 fl (80.0-96.0); PLATELET COUNT, AUTOMATED 199 10^3/uL (150-450); WHITE BLOOD COUNT 6.7 10^3/uL (4.0-10.0)
[2022-02-09 07:05] LABS: BLOOD UREA NITROGEN 9 MG/DL (7-18); CALCIUM LEVEL 8.2 MG/DL (8.8-10.2); CARBON DIOXIDE LEVEL 34 MEQ/L (21-32); CHLORIDE LEVEL 101 MEQ/L (98-107); GLOMERULAR FILTRATION RATE > 60.0 (>32); GLUCOSE, FASTING 121 MG/DL (70-100); POTASSIUM SERUM 2.8 MEQ/L (3.5-5.1); SODIUM LEVEL 138 MEQ/L (136-145)
[2022-02-09] MEDS ORDERED: POTASSIUM CHLORIDE 10MEQ SR TABLET PO ONE ×2 (08:00→12:00)
[2022-02-09 08:58] LABS: MAGNESIUM LEVEL 1.4 MG/DL (1.8-2.4)
[2022-02-09] MEDS: SENOKOT S TAB PO SCH ×2 (09:19→20:26)
[2022-02-09] MEDS: PANTOPRAZOLE 40MG TAB (PROTONIX) PO SCH ×2 (09:19→20:26)
[2022-02-09] MEDS: ENOXAPARIN 30MG/0.3ML SYRINGE (J1650 PER 10MG) SC SCH (09:19)
[2022-02-09] MEDS: ERTAPENEM SODIUM 1 GM in NS MINI-BAG PLUS 50 ML IV SCH (09:19)
[2022-02-09] MEDS: FLUoxetine 20MG CAP PO SCH (09:19)
[2022-02-09] MEDS: ALVIMOPAN 12 MG CAPSULE (ENTEREG) PO SCH ×2 (09:20→20:26)
[2022-02-09] MEDS: amLODIPine 5 MG TAB PO SCH (09:21)
[2022-02-09] MEDS: ISOSORBIDE MON. (IMDUR) 30 MG XR TAB PO SCH (09:21)
[2022-02-09] MEDS ORDERED: MAALOX 30 ML SUSP *UDC PO PRN (09:25)
[2022-02-09] MEDS: KCL 10MEQ/100ML SWI (KRUN) 10 MEQ in IV 1 EA IV SCH ×2 (10:40→12:55)
[2022-02-09] MEDS ORDERED: MAG SULF 1GM/100ML (MAG RUN) 1 GM in IV 1 EA IV ONE (11:00)
[2022-02-09] MEDS ORDERED: KCL 10MEQ IN STERILE WATER 100ML As Ordered ONE (12:52)
[2022-02-09] MEDS: SUCRALFATE 1 GM TAB PO SCH ×3 (12:56→20:26)
[2022-02-09] MEDS: ONDANSETRON 4MG/2ML VIAL IV PRN (13:39)
[2022-02-09 14:00] VITALS: BP 144/72
[2022-02-09 18:00] VITALS: BP 140/71
[2022-02-09 20:03] VITALS: BP 133/62
[2022-02-09] MEDS: ATORVASTATIN 20 MG TAB PO SCH (20:26)
[2022-02-10 06:00] VITALS: BP 136/63
[2022-02-10 06:32] LABS: HEMATOCRIT 29.3 % (36.0-47.0); HEMOGLOBIN 9.5 g/dl (12.0-15.5); MEAN CORPUSCULAR HEMOGLOBIN 28.4 pg (27.0-33.0); MEAN CORPUSCULAR HGB CONC 32.4 g/dl (32.0-36.5); MEAN CORPUSCULAR VOLUME 87.7 fl (80.0-96.0); PLATELET COUNT, AUTOMATED 225 10^3/uL (150-450); RED BLOOD COUNT 3.34 10^6/uL (4.00-5.40); WHITE BLOOD COUNT 5.9 10^3/uL (4.0-10.0)
[2022-02-10 06:55] LABS: BLOOD UREA NITROGEN 9 MG/DL (7-18); CARBON DIOXIDE LEVEL 33 MEQ/L (21-32); CHLORIDE LEVEL 103 MEQ/L (98-107); CREATININE FOR GFR 0.72 MG/DL (0.55-1.30); GLOMERULAR FILTRATION RATE > 60.0 (>32); GLUCOSE, FASTING 126 MG/DL (70-100); MAGNESIUM LEVEL 1.7 MG/DL (1.8-2.4); POTASSIUM SERUM 3.3 MEQ/L (3.5-5.1); SODIUM LEVEL 141 MEQ/L (136-145)
[2022-02-10] MEDS ORDERED: MOM 30ML SUSPENSION UDC PO ONE (08:15)
[2022-02-10] MEDS: SUCRALFATE 1 GM TAB PO SCH ×4 (08:37→20:24)
[2022-02-10] MEDS: FLUoxetine 20MG CAP PO SCH (08:38)
[2022-02-10] MEDS: ISOSORBIDE MON. (IMDUR) 30 MG XR TAB PO SCH (08:38)
[2022-02-10] MEDS: SENOKOT S TAB PO SCH ×2 (08:38→20:24)
[2022-02-10] MEDS: PANTOPRAZOLE 40MG TAB (PROTONIX) PO SCH ×2 (08:38→20:24)
[2022-02-10] MEDS: amLODIPine 5 MG TAB PO SCH (08:39)
[2022-02-10] MEDS: ERTAPENEM SODIUM 1 GM in NS MINI-BAG PLUS 50 ML IV SCH (08:39)
[2022-02-10] MEDS: FUROSEMIDE 40 MG TAB PO SCH (08:39)
[2022-02-10] MEDS: BISOPROLOL FUM 2.5 MG PER 1/2TAB PO SCH (08:39)
[2022-02-10] MEDS: POTASSIUM CHLORIDE 10MEQ SR TABLET PO SCH (08:39)
[2022-02-10] MEDS: ALVIMOPAN 12 MG CAPSULE (ENTEREG) PO SCH ×2 (08:39→20:24)
[2022-02-10] MEDS: ENOXAPARIN 30MG/0.3ML SYRINGE (J1650 PER 10MG) SC SCH (08:40)
[2022-02-10 11:45] VITALS: BP 126/60
[2022-02-10 14:00] VITALS: BP 125/59
[2022-02-10] MEDS: NORCO, ANEXSIA 5/325MG TABLET (HYDROcodone/ACETAMINOPHEN) PO PRN (15:21)
[2022-02-10] MEDS: ATORVASTATIN 20 MG TAB PO SCH (20:24)
[2022-02-10 22:00] VITALS: BP 150/67
[2022-02-11 05:15] VITALS: BP 133/74
[2022-02-11 06:21] LABS: HEMOGLOBIN 9.6 g/dl (12.0-15.5); MEAN CORPUSCULAR HEMOGLOBIN 29.1 pg (27.0-33.0); MEAN CORPUSCULAR HGB CONC 33.1 g/dl (32.0-36.5); MEAN CORPUSCULAR VOLUME 87.9 fl (80.0-96.0); PLATELET COUNT, AUTOMATED 227 10^3/uL (150-450); WHITE BLOOD COUNT 5.6 10^3/uL (4.0-10.0)
[2022-02-11 06:48] LABS: BLOOD UREA NITROGEN 8 MG/DL (7-18); CALCIUM LEVEL 8.3 MG/DL (8.8-10.2); CARBON DIOXIDE LEVEL 33 MEQ/L (21-32); CHLORIDE LEVEL 100 MEQ/L (98-107); CREATININE FOR GFR 0.76 MG/DL (0.55-1.30); GLOMERULAR FILTRATION RATE > 60.0 (>32); GLUCOSE, FASTING 103 MG/DL (70-100); SODIUM LEVEL 139 MEQ/L (136-145)
[2022-02-11] MEDS: POTASSIUM CHLORIDE 10MEQ SR TABLET PO SCH (08:34)
[2022-02-11] MEDS: ERTAPENEM SODIUM 1 GM in NS MINI-BAG PLUS 50 ML IV SCH (08:35)
[2022-02-11] MEDS: ALVIMOPAN 12 MG CAPSULE (ENTEREG) PO SCH (08:35)
[2022-02-11] MEDS: SUCRALFATE 1 GM TAB PO SCH ×4 (08:35→19:58)
[2022-02-11] MEDS: FUROSEMIDE 40 MG TAB PO SCH (08:35)
[2022-02-11] MEDS: ISOSORBIDE MON. (IMDUR) 30 MG XR TAB PO SCH (08:35)
[2022-02-11] MEDS: PANTOPRAZOLE 40MG TAB (PROTONIX) PO SCH ×2 (08:35→19:58)
[2022-02-11] MEDS: amLODIPine 5 MG TAB PO SCH (08:36)
[2022-02-11] MEDS: FLUoxetine 20MG CAP PO SCH (08:36)
[2022-02-11] MEDS: ENOXAPARIN 30MG/0.3ML SYRINGE (J1650 PER 10MG) SC SCH (08:36)
[2022-02-11] MEDS: NORCO, ANEXSIA 5/325MG TABLET (HYDROcodone/ACETAMINOPHEN) PO PRN ×2 (08:37→19:59)
[2022-02-11] MEDS: SENOKOT S TAB PO SCH ×2 (08:42→19:52)
[2022-02-11 14:00] VITALS: BP 130/63
[2022-02-11] MEDS ORDERED: POTASSIUM CHLORIDE 10MEQ SR TABLET PO ONE (15:00)
[2022-02-11] MEDS: ATORVASTATIN 20 MG TAB PO SCH (19:58)
[2022-02-11 22:00] VITALS: BP 121/56
[2022-02-12 06:00] VITALS: BP 134/47
[2022-02-12] MEDS ORDERED: POTASSIUM CHLORIDE 10MEQ SR TABLET PO ONE (06:00)
[2022-02-12 07:17] LABS: HEMOGLOBIN 9.7 g/dl (12.0-15.5); MEAN CORPUSCULAR HEMOGLOBIN 27.6 pg (27.0-33.0); MEAN CORPUSCULAR HGB CONC 31.3 g/dl (32.0-36.5); MEAN CORPUSCULAR VOLUME 88.3 fl (80.0-96.0); PLATELET COUNT, AUTOMATED 274 10^3/uL (150-450); RED BLOOD COUNT 3.51 10^6/uL (4.00-5.40); WHITE BLOOD COUNT 5.7 10^3/uL (4.0-10.0)
[2022-02-12 07:42] LABS: BLOOD UREA NITROGEN 9 MG/DL (7-18); CALCIUM LEVEL 8.8 MG/DL (8.8-10.2); CARBON DIOXIDE LEVEL 31 MEQ/L (21-32); CHLORIDE LEVEL 104 MEQ/L (98-107); CREATININE FOR GFR 0.71 MG/DL (0.55-1.30); GLOMERULAR FILTRATION RATE > 60.0 (>32); GLUCOSE, FASTING 118 MG/DL (70-100); POTASSIUM SERUM 4.2 MEQ/L (3.5-5.1); SODIUM LEVEL 142 MEQ/L (136-145)
[2022-02-12] MEDS: ENOXAPARIN 30MG/0.3ML SYRINGE (J1650 PER 10MG) SC SCH (09:00)
[2022-02-12] MEDS: SENOKOT S TAB PO SCH ×2 (09:00→19:50)
[2022-02-12] MEDS: SUCRALFATE 1 GM TAB PO SCH ×4 (09:01→19:43)
[2022-02-12] MEDS: FUROSEMIDE 40 MG TAB PO SCH (09:01)
[2022-02-12] MEDS: ISOSORBIDE MON. (IMDUR) 30 MG XR TAB PO SCH (09:01)
[2022-02-12] MEDS: PANTOPRAZOLE 40MG TAB (PROTONIX) PO SCH ×2 (09:01→19:43)
[2022-02-12] MEDS: FLUoxetine 20MG CAP PO SCH (09:01)
[2022-02-12] MEDS: POTASSIUM CHLORIDE 10MEQ SR TABLET PO SCH (09:01)
[2022-02-12] MEDS: BISOPROLOL FUM 2.5 MG PER 1/2TAB PO SCH (09:01)
[2022-02-12] MEDS: amLODIPine 5 MG TAB PO SCH (09:02)
[2022-02-12 14:00] VITALS: BP 129/53
[2022-02-12 18:00] VITALS: BP 122/54
[2022-02-12] MEDS: ATORVASTATIN 20 MG TAB PO SCH (19:43)
[2022-02-12 22:00] VITALS: BP 124/54
[2022-02-13 05:57] LABS: HEMATOCRIT 30.6 % (36.0-47.0); HEMOGLOBIN 9.8 g/dl (12.0-15.5); MEAN CORPUSCULAR HEMOGLOBIN 28.2 pg (27.0-33.0); MEAN CORPUSCULAR VOLUME 88.2 fl (80.0-96.0); PLATELET COUNT, AUTOMATED 280 10^3/uL (150-450); RED BLOOD COUNT 3.47 10^6/uL (4.00-5.40); WHITE BLOOD COUNT 6.2 10^3/uL (4.0-10.0)
[2022-02-13 06:00] VITALS: BP 131/60
[2022-02-13 06:20] LABS: BLOOD UREA NITROGEN 10 MG/DL (7-18); CALCIUM LEVEL 8.9 MG/DL (8.8-10.2); CARBON DIOXIDE LEVEL 32 MEQ/L (21-32); CHLORIDE LEVEL 103 MEQ/L (98-107); CREATININE FOR GFR 0.86 MG/DL (0.55-1.30); GLOMERULAR FILTRATION RATE > 60.0 (>32); GLUCOSE, FASTING 124 MG/DL (70-100); SODIUM LEVEL 142 MEQ/L (136-145)
[2022-02-13] MEDS: SENOKOT S TAB PO SCH ×2 (08:47→21:49)
[2022-02-13] MEDS: FUROSEMIDE 40 MG TAB PO SCH (08:47)
[2022-02-13] MEDS: SUCRALFATE 1 GM TAB PO SCH ×4 (08:47→21:49)
[2022-02-13] MEDS: POTASSIUM CHLORIDE 10MEQ SR TABLET PO SCH (08:47)
[2022-02-13] MEDS: PANTOPRAZOLE 40MG TAB (PROTONIX) PO SCH ×2 (08:47→21:49)
[2022-02-13] MEDS: FLUoxetine 20MG CAP PO SCH (08:47)
[2022-02-13] MEDS: ISOSORBIDE MON. (IMDUR) 30 MG XR TAB PO SCH (08:48)
[2022-02-13] MEDS: ENOXAPARIN 30MG/0.3ML SYRINGE (J1650 PER 10MG) SC SCH (08:48)
[2022-02-13] MEDS: amLODIPine 5 MG TAB PO SCH (08:49)
[2022-02-13 14:00] VITALS: BP 122/65
[2022-02-13 20:00] VITALS: BP 120/64
[2022-02-13] MEDS: ATORVASTATIN 20 MG TAB PO SCH (21:49)
[2022-02-13 22:00] VITALS: BP 120/64
[2022-02-14 06:00] VITALS: BP 122/62
[2022-02-14] MEDS: SUCRALFATE 1 GM TAB PO SCH (08:37)
[2022-02-14] MEDS: PANTOPRAZOLE 40MG TAB (PROTONIX) PO SCH (08:37)
[2022-02-14] MEDS: FUROSEMIDE 40 MG TAB PO SCH (08:37)
[2022-02-14] MEDS: SENOKOT S TAB PO SCH ×2 (08:37→09:00)
[2022-02-14] MEDS: POTASSIUM CHLORIDE 10MEQ SR TABLET PO SCH (08:37)
[2022-02-14] MEDS: FLUoxetine 20MG CAP PO SCH (08:37)
[2022-02-14] MEDS: ENOXAPARIN 30MG/0.3ML SYRINGE (J1650 PER 10MG) SC SCH (08:38)
[2022-02-14 08:40] VITALS: BP 134/71
[2022-02-14] MEDS: amLODIPine 5 MG TAB PO SCH (08:40)
[2022-02-14] MEDS: BISOPROLOL FUM 2.5 MG PER 1/2TAB PO SCH (08:41)
[2022-02-14] MEDS: ISOSORBIDE MON. (IMDUR) 30 MG XR TAB PO SCH (08:41)
[2022-02-14] MEDS ORDERED: SENN-52 PO (09:27)
== END 2022-02-14 11:33 | disposition home health service (06) | DRG 331 ==
LOC: M OR 06:10 → M MSPAV 12:50
PROVIDERS: ADMIT Surgery; ATTEND Surgery
PROC: 0DB84ZZ Excision of Small Intestine, Percutaneous Endoscopic Approach (ICD-10-PCS; 2022-02-06)
PROC: 8E0W4CZ Robotic Assisted Procedure of Trunk Region, Percutaneous Endoscopic Approach (ICD-10-PCS; 2022-02-06)
PROC: 0DBL4ZZ Excision of Transverse Colon, Percutaneous Endoscopic Approach (ICD-10-PCS; principal; 2022-02-06 07:30)
DX: C18.4 Malignant neoplasm of transverse colon (principal); I27.20 Pulmonary hypertension, unspecified; I10 Essential (primary) hypertension; I25.10 Atherosclerotic heart disease of native coronary artery without angina pectoris; E78.5 Hyperlipidemia, unspecified; E87.6 Hypokalemia; E83.42 Hypomagnesemia

== ENCOUNTER → 2022-04-11 | Outpatient (REF) | payer MEDICARE, OTHER ==
[~2022-04-11] MED LIST changes: +ASPI81CH33 PO; +DRON2.5C11; -LIDOCAINE 1% MDV 20ML VIAL SQ PRN; +MAGN400T33; +POTA10PO; +SENN-52 PO
[2022-04-11 17:30] LABS: PERCENT SATURATION 22.2 % (13.2-45.0)
== END ==
LOC: M LAB REF 16:23
PROVIDERS: ATTEND Internal Medicine
DX: D64.9 Anemia, unspecified (principal)

== ENCOUNTER → 2022-04-23 | Outpatient (CLI) | payer MEDICARE, OTHER | LOC: M PLARAD 14:43 | PROVIDERS: ATTEND Specialist | DX: C18.8 Malignant neoplasm of overlapping sites of colon (principal); Z90.49 Acquired absence of other specified parts of digestive tract | CPT/HCPCS: 78815; A9552 ==

== ENCOUNTER 2022-07-22 03:26 | Emergency (ER) | payer BC, MEDICARE, OTHER ==
[~2022-07-22] VITALS: Ht 167.6 cm; Wt 88.3 kg
[2022-07-22 03:54] LABS: BASO # 0.1 10^3/uL (0.0-0.2); BASO % 0.8 % (0.0-1.0); EOS # 0.3 10^3/uL (0.0-0.5); EOS % 4.4 % (0.0-3.0); HEMATOCRIT 38.9 % (36.0-47.0); HEMOGLOBIN 12.5 g/dl (12.0-15.5); LYMPH # 2.6 10^3/uL (1.5-5.0); LYMPH % 35.4 % (24.0-44.0); MEAN CORPUSCULAR HEMOGLOBIN 29.7 pg (27.0-33.0); MEAN CORPUSCULAR HGB CONC 32.1 g/dl (32.0-36.5); MEAN CORPUSCULAR VOLUME 92.4 fl (80.0-96.0); MONO # 0.7 10^3/uL (0.0-0.8); MONO % 9.7 % (2.0-8.0); NEUTROPHILS # 3.6 10^3/uL (1.5-8.5); NEUTROPHILS % 48.2 % (36.0-66.0); PLATELET COUNT, AUTOMATED 247 10^3/uL (150-450); RED BLOOD COUNT 4.21 10^6/uL (4.00-5.40); WHITE BLOOD COUNT 7.4 10^3/uL (4.0-10.0)
[2022-07-22 04:05] LABS: INR 0.98; PROTHROMBIN TIME 13.2 SECONDS (12.5-14.5)
[2022-07-22 04:22] LABS: ALBUMIN 3.5 GM/DL (3.2-5.2); BILIRUBIN,DIRECT 0.1 MG/DL (0.0-0.2); BILIRUBIN,TOTAL 0.5 MG/DL (0.2-1.0); CALCIUM LEVEL 9.4 MG/DL (8.8-10.2); CREATININE FOR GFR 0.96 MG/DL (0.55-1.30); GLOMERULAR FILTRATION RATE 58.5 (>32); POTASSIUM SERUM 3.6 MEQ/L (3.5-5.1); TOTAL PROTEIN 6.3 GM/DL (6.4-8.2)
[2022-07-22 04:23] LABS: CK-MB VALUE MASS 1.9 NG/ML (<3.6); MB/CK RELATIVE INDEX 2.09 (< OR =4)
[2022-07-22 04:30] LABS: RSV AMPLIFICATION NEGATIVE (NEGATIVE)
[2022-07-22 06:00] VITALS: BP 152/68
[2022-07-22 06:16] LABS: MAGNESIUM LEVEL 1.9 MG/DL (1.8-2.4)
[2022-07-22 06:28] LABS: CK-MB VALUE MASS 2.3 NG/ML (<3.6); MB/CK RELATIVE INDEX 2.88 (< OR =4)
== END 2022-07-22 06:55 | disposition home or self-care (01) ==
LOC: M ED 03:26
DX: R00.2 Palpitations (principal); E11.9 Type 2 diabetes mellitus without complications; I25.10 Atherosclerotic heart disease of native coronary artery without angina pectoris; I10 Essential (primary) hypertension; E78.5 Hyperlipidemia, unspecified; G47.33 Obstructive sleep apnea (adult) (pediatric); C18.9 Malignant neoplasm of colon, unspecified; Z95.5 Presence of coronary angioplasty implant and graft; Z88.0 Allergy status to penicillin; Z88.1 Allergy status to other antibiotic agents; Z88.2 Allergy status to sulfonamides; Z88.8 Allergy status to other drugs, medicaments and biological substances; Z79.82 Long term (current) use of aspirin; Z79.899 Other long term (current) drug therapy

== ENCOUNTER → 2022-10-23 | Outpatient (REF) | payer MEDICARE, BC, OTHER ==
[~2022-10-23] MED LIST changes: +RISATAB3 PO
[2022-10-23 16:59] LABS: PERCENT SATURATION 23.6 % (13.2-45.0)
== END ==
LOC: M LAB REF 16:08
PROVIDERS: ATTEND Internal Medicine
DX: D64.9 Anemia, unspecified (principal)

== ENCOUNTER → 2023-04-30 | Outpatient (REF) | payer MEDICARE, BC, OTHER ==
[2023-04-30 18:39] LABS: PERCENT SATURATION 22.4 % (13.2-45.0)
== END ==
LOC: M LAB REF 17:32
PROVIDERS: ATTEND Internal Medicine
DX: D64.9 Anemia, unspecified (principal)